=== PATIENT | female | born 1955 | race Caucasian/White ===

== ENCOUNTER → 2019-10-30 | Outpatient (CLI) | payer MEDICARE ==
[2019-10-31 13:36] LABS: FREE T4 0.95 ng/dL (0.76-1.46); THYROID STIM HORMONE (TSH) 4.456 uIU/mL (0.358-3.740)
== END | disposition home or self-care (01) ==
LOC: LAB 15:08
PROVIDERS: ATTEND Physician Assistant Medical
DX: R79.89 Other specified abnormal findings of blood chemistry (principal); R94.6 Abnormal results of thyroid function studies
CPT/HCPCS: 84439; 84443; 84481

== ENCOUNTER → 2020-05-27 | Outpatient (CLI) | payer MEDICARE ==
--- NOTE | 2020-05-27 18:00 | RAD ---
INDICATION: Reason: RIGHT SHOULDER AND RIGHT KNEE PAIN / Spl. Instructions: / History: COMPARISON: None. IMPRESSION: Right shoulder: 3 views obtained. Mild degenerative changes of the shoulder joint with early osteophyte formation. There is also mild hypertrophic changes at the acromioclavicular joint. Calcific atherosclerosis of partially visualized thoracic aorta. No evidence of acute fracture or dislocation of the shoulder. Mild patchy osseous demineralization. Right knee: 3 views obtained. Moderate degenerative changes including at the medial compartment where there is osteophyte formation. No evidence of acute fracture or dislocation. Electronically signed by: Jasen Ochoa MD (05/27/2020 5:57 PM) [id number]
== END | disposition home or self-care (01) ==
LOC: RAD 17:21
PROVIDERS: ATTEND Physician Assistant Medical
DX: M17.11 Unilateral primary osteoarthritis, right knee (principal); M25.711 Osteophyte, right shoulder; M25.761 Osteophyte, right knee
CPT/HCPCS: 73030; 73562

== ENCOUNTER → 2021-07-21 | Outpatient (CLI) | payer MEDICARE, OTHER ==
--- NOTE | 2021-07-21 15:17 | RAD ---
EXAM: XR KNEE 3 VIEWS_RT 07/21/2021 2:47 PM CLINICAL INDICATION: Right knee osteoarthrosis, medial meniscus tear COMPARISON: Right knee radiograph 05/31/2020 TECHNIQUE: 3 views of the right FINDINGS: There is no acute fracture or malalignment. There is mild medial compartment narrowing and subchondral sclerosis. There is slight degenerative remodeling of the medial femoral condyle articul ar surface. Lateral compartment spaces maintained. There are small tricompartment osteophytes. Small joint effusion. IMPRESSION: Unchanged mild tricompartmental osteoarthrosis, greatest in medial compartment. Electronically signed by: Beatriz Allen MD (07/21/2021 3:15 PM) [id number]
== END ==
LOC: RAD 14:39
PROVIDERS: ATTEND Physician Assistant
DX: S83.241D Other tear of medial meniscus, current injury, right knee, subsequent encounter (principal); M17.11 Unilateral primary osteoarthritis, right knee; M25.461 Effusion, right knee; M25.761 Osteophyte, right knee; X58.XXXD Exposure to other specified factors, subsequent encounter
CPT/HCPCS: 73562